=== PATIENT | male | born 1950 | race African-American/Black ===

== ENCOUNTER 2018-09-10 05:40 | Emergency (ER) | payer BC, OTHER ==
--- NOTE | 2018-09-10 05:52 | PDOC ---
History of Present Illness - General Stated Complaint: HEAD INJURY Time Seen by Provider: 09/10/18 05:51 History Source: Patient Exam Limitations: No Limitations - History of Present Illness Initial Comments: 09/10/18 05:56 Best Contact: PCP:Dr. Prakash Pmhx: HTN, Glaucoma, hyperlipidemia Pshx:2015: prostatectomy Allergies:PCN/hospitalized x30 years ago FH:0 Social Hx: Cigarettes/ Denies Alcohol/ Denies Drugs/Denies 68-year-old male presents to the emergency department complaining of left-sided occipital headaches s/p striking the left side of his head against a doorway. Pain is described as 3/10 dull nonradiating intermittent discomfort. Patient states while he was picking up twigs by his doorway, he accidentally struck the left side of his head against the center pole of his door. Patient denied LOC, dizziness, lightheadedness, facial pain, neck pain/stiffness, back pains, chest pain, shortness of breath, flank pain, abdominal discomfort, urinary symptoms, bladder or bowel dysfunction, extremity numbness or tingling sensation. Patient did not take any pain medication but decided to come get it checked out before the holidays. Past History - Past Medical History Allergies/Adverse Reactions: Allergies Allergy/AdvReac Type Severity Reaction Status Date / Time Penicillins Allergy Mild Verified 09/10/18 06:42 Home Medications: Ambulatory Orders Aspirin 81 mg PO DAILY 09/10/18 Atorvastatin Ca [Lipitor] 40 mg PO HS 09/10/18 Metoprolol Tartrate 25 mg PO DAILY 09/10/18 - Immunization History Immunization Up to Date: Yes - Suicide/Smoking/Psychosocial Hx Smoking History: Never smoked Have you smoked in the past 12 months: No Number of Cigarettes Smoked Daily: 0 Cigars Per Day: 0 Hx Alcohol Use: No Drug/Substance Use Hx: No Review of Systems - Review of Systems Able to Perform ROS?: Yes Comments:: 09/10/18 05:55 CONSTITUTIONAL: Absent: fever, chills, diaphoresis, generalized weakness, malaise, loss of appetite HEENT: Absent: rhinorrhea, nasal congestion, throat pain, throat swelling, difficulty swallowing, mouth swelling, ear pain, eye pain, visual Changes CARDIOVASCULAR: Absent: chest pain, loss of consciousness, palpitations, irregular heart rate, peripheral edema RESPIRATORY: Absent: cough, shortness of breath, dyspnea with exertion, orthopnea, wheezing, stridor, hemoptysis GASTROINTESTINAL: Absent: abdominal pain, abdominal distension, nausea, vomiting, diarrhea, constipation, melena, hematochezia GENITOURINARY: Absent: dysuria, frequency, urgency, hesitancy, hematuria, flank pain, genital pain MUSCULOSKELETAL: Absent: myalgia, arthralgia, joint swelling SKIN: Absent: rash, itching, pallor HEMATOLOGIC/IMMUNOLOGIC: Absent: easy bleeding, easy bruising, lymphadenopathy, frequent infections ENDOCRINE: Absent: unexplained weight gain, unexplained weight loss, heat intolerance, cold intolerance NEUROLOGIC: +left occipital santiago Absent: focal weakness or paresthesias, dizziness, unsteady gait, seizure, mental status changes, bladder or bowel incontinence PSYCHIATRIC: Absent: anxiety, depression, suicidal or homicidal ideation, hallucinations. Is the patient limited Danish proficient: No *Physical Exam - Physical Exam Comments: 09/10/18 05:56 GENERAL: Well developed, well nourished. Awake and alert. No acute distress. HEENT: Normocephalic, atraumatic. PERRLA, EOMI. No conjunctival pallor. Sclera are non- icteric. Moist mucous membranes. Oropharynx is clear. NECK: Supple. Full ROM. No JVD. Carotid pulses 2+ and symmetric, without bruits. No thyromegaly. No lymphadenopathy. CARDIOVASCULAR: Regular rate and rhythm. No murmurs, rubs, or gallops. Distal pulses are 2+ and symmetric. PULMONARY: No evidence of respiratory distress. Lungs clear to auscultation bilaterally. No wheezing, rales or rhonchi. ABDOMINAL: Soft. Non-tender. Non-distended. No rebound or guarding. No organomegaly. Normoactive bowel sounds. MUSCULOSKELETAL Normal range of motion at all joints. No bony deformities or tenderness. No CVA tenderness. EXTREMITIES: No cyanosis. No clubbing. No edema. No calf tenderness. SKIN: Warm and dry. Normal capillary refill. No rashes. No jaundice. NEUROLOGICAL: Alert, awake, appropriate. Cranial nerves 2-12 intact. No deficits to light touch and temperature in face, upper extremities and lower extremities. No motor deficits in the in face, upper extremities and lower extremities. Normoreflexic in the upper and lower extremities. Normal speech. Toes are down- going bilaterally. Gait is normal without ataxia. PSYCHIATRIC: Cooperative. Good eye contact. Appropriate mood and affect. ED Treatment Course - RADIOLOGY Radiograph Interpretation: 09/10/18 05:56 CT scan head /c spine w/o contrast: Brain parenchymal is normal in attenuation with no mass or hematoma. There is no midline shift. Gram white matter differentiation is normal. Ventricles are normal. Mild degenerative changes with no cervical spine fracture. *DC/Admit/Observation/Transfer Diagnosis at time of Disposition: Closed head injury Qualifiers: Encounter type: initial encounter Qualified Code(s): S09.90XA - Unspecified injury of head, initial encounter - Discharge Dispostion Condition at time of disposition: Fair - Referrals Referrals: Derek Prakash MD [Primary Care Provider] - - Patient Instructions Printed Discharge Instructions: DI for Closed Head Injury Additional Instructions: Take Tylenol alternating with Motrin as needed for pain Follow with your doctor this week Return back to the ER for severe/persistent or worsening symptoms - Post Discharge Activity
[2018-09-10 06:02] VITALS: BP 138/76; PULSE 60; TEMP 97.8; BMI 22.5
== END 2018-09-10 07:15 | disposition home or self-care (01) ==
LOC: JER 05:40
DX: S09.8XXA Other specified injuries of head, initial encounter (principal); R51 Headache; W22.8XXA Striking against or struck by other objects, initial encounter; Y93.89 Activity, other specified; Y92.038 Other place in apartment as the place of occurrence of the external cause; Y99.8 Other external cause status; I10 Essential (primary) hypertension; Z88.0 Allergy status to penicillin
CPT/HCPCS: 70450-TC; 72125-TC; 99281-25

== ENCOUNTER 2020-03-16 12:53 | Emergency (ER) | payer BC, OTHER ==
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
[2020-03-16 13:03] VITALS: TEMP 98.6; BMI 23.1
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
[2020-03-16 13:42] LABS: BASO % 0.4 % (0-2.0); EOS % 5.3 % (0-4.5); HEMATOCRIT 49.1 % (35.4-49); HEMOGLOBIN 15.9 GM/dL (11.7-16.9); LYMPH % 38.4 % (8-40); MCHC 32.3 g/dl (32.0-35.9); MEAN CELL VOLUME 83.6 fl (80-96); MONO % 10.6 % (3.8-10.2); NEUT % 45.3 % (42.8-82.8); PLATELET COUNT 133 K/MM3 (134-434); RBC 5.87 M/mm3 (4.00-5.60); RDW 13.8 % (11.9-15.9); WHITE BLOOD COUNT 3.5 K/mm3 (4.0-10.0)
[2020-03-16 14:09] LABS: ALBUMIN 3.7 g/dl (3.4-5.0); ALK PHOS 87 U/L (45-117); ANION GAP 7 MMOL/L (8-16); BILIRUBIN,TOTAL 0.6 mg/dL (0.2-1); BLOOD UREA NITROGEN 14.3 mg/dL (7-18); CALCIUM 9.2 mg/dL (8.5-10.1); CHLORIDE 107 mmol/L (98-107); CO2 27 mmol/L (21-32); CREATININE 0.8 mg/dL (0.55-1.3); GLUCOSE,RANDOM 115 mg/dL (74-106); POTASSIUM 4.4 mmol/L (3.5-5.1); SGOT/AST 27 U/L (15-37); SGPT/ALT 37 U/L (13-61); SODIUM 141 mmol/L (136-145); TOT PROT 6.6 g/dl (6.4-8.2)
[2020-03-16 17:07] VITALS: BP 129/77; PULSE 62
--- NOTE | 2020-03-17 09:21 | EKG ---
Test Reason : Blood Pressure : / mmHG Vent. Rate : 071 BPM Atrial Rate : 071 BPM P-R Int : 228 ms QRS Dur : 088 ms QT Int : 356 ms P-R-T Axes : 062 007 036 degrees QTc Int : 386 ms SINUS RHYTHM WITH SINUS ARRHYTHMIA WITH 1ST DEGREE A-V BLOCK ST ELEVATION CONSIDER INFERIOR INJURY OR ACUTE INFARCT ACUTE CA / STEMI ABNORMAL ECG WHEN COMPARED WITH ECG OF 05-MAY-2002 09:46, NO SIGNIFICANT CHANGE WAS FOUND Confirmed by EKLL MICHEL MD ([id number]) on 03/17/2020 9:21:37 AM Referred By: Confirmed By:KELL MICHEL MD
--- NOTE | 2020-03-17 11:14 | EKG ---
Test Reason : Blood Pressure : / mmHG Vent. Rate : 071 BPM Atrial Rate : 071 BPM P-R Int : 210 ms QRS Dur : 090 ms QT Int : 358 ms P-R-T Axes : 078 007 039 degrees QTc Int : 389 ms POOR DATA QUALITY, INTERPRETATION MAY BE ADVERSELY AFFECTED SINUS RHYTHM WITH SINUS ARRHYTHMIA WITH 1ST DEGREE A-V BLOCK NONSPECIFIC ST ABNORMALITY ABNORMAL ECG WHEN COMPARED WITH ECG OF 16-MAR-2020 13:00, NO SIGNIFICANT CHANGE WAS FOUND Confirmed by KELL MICHEL MD ([id number]) on 03/17/2020 11:13:49 AM Referred By: Confirmed By:KELL MICHEL MD
== END 2020-03-16 17:08 | disposition home or self-care (01) ==
LOC: JER 12:53
DX: R07.9 Chest pain, unspecified (principal); V89.2XXA Person injured in unspecified motor-vehicle accident, traffic, initial encounter
CPT/HCPCS: 36415; 71046-TC-FY; 80053; 82550; 84484; 85025; 93005; 93010; 99284-25

== ENCOUNTER 2024-01-18 11:21 | Emergency (ER) | payer OTHER ==
[2024-01-18 13:18] VITALS: TEMP 99; BMI 23.7
[2024-01-18 16:06] LABS: BASO % 0.2 % (0-2.0); EOS % 0.8 % (0-4.5); HEMATOCRIT 45.4 % (35.4-49); HEMOGLOBIN 14.9 GM/dL (11.7-16.9); LYMPH % 12.5 % (8-40); MCH 26.8 pg (25.7-33.7); MCHC 32.7 g/dl (32.0-35.9); MEAN CELL VOLUME 81.9 fl (80-96); MEAN PLT VOLUME 8.8 fl (7.5-11.1); MONO % 7.7 % (3.8-10.2); NEUT % 78.8 % (42.8-82.8); PLATELET COUNT 116 10^3/uL (134-434); RBC 5.55 M/mm3 (4.00-5.60); RDW 14.6 % (11.9-15.9); WHITE BLOOD COUNT 4.8 K/mm3 (4.0-10.0)
[2024-01-18 16:25] LABS: POTASSIUM 4.1 mmol/L (3.5-5.1)
[2024-01-18 16:27] LABS: ALBUMIN 3.1 g/dl (3.4-5.0); CALCIUM 8.8 mg/dL (8.5-10.1); MAGNESIUM 2.2 mg/dL (1.8-2.4)
[2024-01-18 16:30] LABS: PHOSPHOROUS 3.7 mg/dL (2.5-4.9)
[2024-01-18 16:31] LABS: CREATININE 0.8 mg/dL (0.55-1.3)
[2024-01-18 16:32] LABS: BILIRUBIN,TOTAL 0.5 mg/dL (0.2-1); TOT PROT 6.4 g/dl (6.4-8.2)
[2024-01-18] MEDS: SODIUM CHLORIDE 1,000 ML IV STA (16:36)
[2024-01-18 16:37] LABS: BLOOD UREA NITROGEN 10.5 mg/dL (7-18)
[2024-01-18 19:22] VITALS: BP 120/71; PULSE 80; RESP 18
== END 2024-01-18 19:26 | disposition home or self-care (01) ==
LOC: JER 11:21
PROC: 3E0337Z Introduction of Electrolytic and Water Balance Substance into Peripheral Vein, Percutaneous Approach (ICD-10-PCS; principal; 2024-01-18)
DX: R55 Syncope and collapse (principal); R15.9 Full incontinence of feces; R11.0 Nausea
CPT/HCPCS: 36415; 70450-TC; 71045-TC-FY; 80053; 83735; 84100; 84484; 85025; 93005; 93010; 99285-25